=== PATIENT | male | born 2000 | race Caucasian/White ===

== ENCOUNTER 2023-07-25 12:15 | Outpatient (OUT) | payer OTHER, SELFPAY ==
[2023-07-25 12:57] LABS: Basophils Percent Auto 0.3 % (0.2-2.0); Eosinophils Absolute Auto 0.1 10^3/uL (0.0-0.7); Eosinophils Percent Auto 0.7 % (0.9-7.0); Hematocrit 45.6 % (42.0-54.0); Hemoglobin 15.8 g/dL (14.0-18.0); Immature Granulocytes Abs Auto 0.05 10^3/uL (0.00-0.03); Immature Granulocytes Pct Auto 0.7 % (0.0-0.5); Lymphocytes Absolute Auto 2.1 10^3/uL (1.2-3.8); Lymphocytes Percent Auto 31.5 % (20.5-60.0); Mean Corpuscular HGB Conc 34.6 g/dL (29.9-35.2); Mean Corpuscular Hemoglobin 28.9 pg (25.9-34.0); Mean Corpuscular Volume 83.5 fL (80.0-94.0); Mean Platelet Volume 11.1 fL (9.5-13.5); Monocytes Absolute Auto 0.7 10^3/uL (0.3-0.8); Monocytes Percent Auto 10.3 % (1.7-12.0); Neutrophils Absolute Auto 3.8 10^3/uL (1.4-6.5); Neutrophils Percent Auto 56.5 % (43.0-75.0); Platelet Count 330 10^3/uL (150-450); Red Blood Count 5.46 10^6/uL (4.70-6.10); Red Cell Distribution Width 12.6 % (11.0-15.0); White Blood Count 6.8 10^3/uL (4.0-11.0)
[2023-07-25 15:06] LABS: Alanine Aminotransferase 18 U/L (16-63); Albumin Globulin Ratio 1.4; Albumin Level 4.6 g/dL (3.4-5.0); Alkaline Phosphatase 97 U/L (46-116); Anion Gap 20.3; Aspartate Amino Transferase <5 U/L (15-37); Bilirubin Total 0.7 mg/dL (0.2-1.0); Chloride 100 mmol/L (98-107); Estimated GFR (African America >60 (>=60); Estimated GFR (Non-African Ame >60 (>=60); Globulin 3.4 g/dL; Glucose 310 mg/dL (74-106); Potassium 4.3 mmol/L (3.5-5.1); Sodium 134 mmol/L (136-145)
== END 2023-07-25 12:16 | disposition home or self-care (01) ==
LOC: LAB 12:23
PROVIDERS: PCP Family Medicine; Visit Provider Family Medicine
DX: E10.9 Type 1 diabetes mellitus without complications (principal); E10.10 Type 1 diabetes mellitus with ketoacidosis without coma
CPT/HCPCS: 36415; 80053; 85025